=== PATIENT | male | born 1955 | race Caucasian/White ===

== ENCOUNTER 2017-05-30 10:48 | Inpatient (IN) | payer OTHER ==
[2017-05-30] MEDS ORDERED: FAMOTIDINE 20 MG/2 ML VIAL IV STA (11:44)
[2017-05-30] MEDS ORDERED: SODIUM CHLORIDE 0.9% 1,000 ML IV STA (11:44)
[2017-05-30] MEDS ORDERED: RX INFO: IV CONTRAST WAS GIVEN 1 EACH MISC MISCELLANE PRN ×2 (11:45→13:33)
--- NOTE | 2017-05-30 12:20 | ED ---
General Adult HPI - General Chief complaint: Abdominal Pain Stated complaint: Chest Pain Time Seen by Provider: 05/30/17 11:27 Source: patient, RN notes reviewed Mode of arrival: ambulatory Limitations: no limitations - History of Present Illness Initial comments: 61-year-old male presents to the emergency department with a chief complaint of abdominal pain. Patient admits to epigastric palpation as well as a lower abdominal pain. Patient states he just cannot seem to get comfortable at home. Patient denies any changes in bowel or bladder habits he states that he did feel nauseous and did have a few episodes of vomiting with this. Patient states he's never had anything like this before. Patient states that he just cannot get it feeling any better so he thought that he should be seen. Patient states his been no chest pain. Patient states he has had a dry mouth this. Patient denies any recent fever, chills, shortness of breath, chest pain, back pain, numbness or tingling, dysuria or hematuria, constipation or diarrhea, headaches or visual changes, or any other current symptoms. - Related Data Home Medications Medication Instructions Recorded Confirmed Aspirin 325 mg PO DAILY PRN 05/30/17 05/30/17 Atorvastatin [Lipitor] 20 mg PO QAM 05/30/17 05/30/17 Calcium Carbonate [Tums] 500 mg PO QID PRN 05/30/17 05/30/17 Multivit-Min/FA/Lycopen/Lutein 1 tab PO DAILY 05/30/17 05/30/17 [Centrum Silver Men Tablet] Allergies Allergy/AdvReac Type Severity Reaction Status Date / Time No Known Allergies Allergy Verified 05/30/17 11:38 Review of Systems ROS Statement: Those systems with pertinent positive or pertinent negative responses have been documented in the HPI. ROS Other: All systems not noted in ROS Statement are negative. Past Medical History Past Medical History: Hyperlipidemia History of Any Multi-Drug Resistant Organisms: None Reported Past Surgical History: Hernia Repair Additional Past Surgical History / Comment(s): rectocele repair, bilat hernia repair Past Anesthesia/Blood Transfusion Reactions: No Reported Reaction Past Psychological History: No Psychological Hx Reported Smoking Status: Former smoker Past Alcohol Use History: Occasional Past Drug Use History: None Reported General Exam - General Exam Comments Initial Comments: General: The patient is awake and alert, in no distress, and does not appear acutely ill. Eye: Pupils are equal, round and reactive to light, extra-ocular movements are intact; there is normal conjunctiva bilaterally. No signs of icterus. Ears, nose, mouth and throat: There are moist mucous membranes and no oral lesions. Neck: The neck is supple, there is no tenderness. Cardiovascular: There is a regular rate and rhythm. No murmur, rub or gallop is appreciated. Respiratory: Lungs are clear to auscultation, respirations are non-labored, breath sounds are equal. No wheezes, stridor, rales, or rhonchi. Gastrointestinal: Soft, distended with some epigastric abdomen without masses or organomegaly noted. There is no rebound or guarding present. No CVA tenderness. Bowel sounds are unremarkable. Back: There is no tenderness to palpation in the midline. There is no obvious deformity. No rashes noted. Musculoskeletal: Normal ROM, no tenderness, There is no pedal edema. There is no calf tenderness or swelling. Sensation intact. Pulses equal bilaterally 2+. Neurological: CN II-XII intact, There are no obvious motor or sensory deficits. Coordination appears grossly intact. Speech is normal. Skin: Skin is warm and dry and no rashes or lesions are noted. Psychiatric: Cooperative, appropriate mood & affect, normal judgment. Limitations: no limitations Course Vital Signs 05/30/17 10:49 Temperature 98.9 F Pulse Rate 78 Respiratory 18 Rate Blood Pressure 153/81 O2 Sat by Pulse 99 Oximetry EKG Findings - EKG Comments: EKG Findings:: normal sinus rhythm 67 bpm, normal axis, no atopy, no S-T depressions or elevations, Medical Decision Making - Medical Decision Making 61-year-old male presents emergency Department chief complaint of abdominal pain. At this time patient's CAT scan has been reviewed. There is a mass of unknown origin noted. At this time we'll admit the patient for continued care. We will continue pain medication for the patient. He is in agreement with this plan. All questions have been answered. - Lab Data Result diagrams: 05/30/17 12:15 05/30/17 12:15 Lab Results 05/30/17 05/30/17 05/30/17 Range/Units 12:15 12:15 12:15 WBC 10.0 (3.8-10.6) k/uL RBC 4.66 (4.30-5.90) m/uL Hgb 14.1 (13.0-17.5) gm/dL Hct 43.2 (39.0-53.0) % MCV 92.7 (80.0-100.0) fL MCH 30.3 (25.0-35.0) pg MCHC 32.6 (31.0-37.0) g/dL RDW 15.1 (11.5-15.5) % Plt Count 187 (150-450) k/uL Neutrophils % 86 % Lymphocytes % 8 % Monocytes % 5 % Eosinophils % 1 % Basophils % 0 % Neutrophils # 8.6 H (1.3-7.7) k/uL Lymphocytes # 0.8 L (1.0-4.8) k/uL Monocytes # 0.5 (0-1.0) k/uL Eosinophils # 0.1 (0-0.7) k/uL Basophils # 0.0 (0-0.2) k/uL PT (9.0-12.0) sec INR (<1.2) APTT (22.0-30.0) sec Sodium 142 (137-145) mmol/L Potassium 4.6 (3.5-5.1) mmol/L Chloride 108 H (98-107) mmol/L Carbon Dioxide 23 (22-30) mmol/L Anion Gap 11 mmol/L BUN 14 (9-20) mg/dL Creatinine 0.84 (0.66-1.25) mg/dL Est GFR (MDRD) Af Amer >60 (>60 ml/min/1.73 sqM) Est GFR (MDRD) Non-Af >60 (>60 ml/min/1.73 sqM) Glucose 139 H (74-99) mg/dL Calcium 9.6 (8.4-10.2) mg/dL Magnesium 1.8 (1.6-2.3) mg/dL Total Bilirubin 0.6 (0.2-1.3) mg/dL AST 17 (17-59) U/L ALT 28 (21-72) U/L Alkaline Phosphatase 60 (38-126) U/L Total Creatine Kinase 44 L (55-170) U/L CK-MB (CK-2) 0.6 (0.0-2.4) ng/mL CK-MB (CK-2) Rel Index 1.4 Troponin I <0.012 (0.000-0.034) ng/mL Total Protein 6.8 (6.3-8.2) g/dL Albumin 3.9 (3.5-5.0) g/dL Amylase 36 (30-110) U/L Lipase 348 H (23-300) U/L Urine Color Urine Appearance (Clear) Urine pH (5.0-8.0) Ur Specific Gilbert (1.001-1.035) Urine Protein (Negative) Urine Glucose (UA) (Negative) Urine Ketones (Negative) Urine Blood (Negative) Urine Nitrite (Negative) Urine Bilirubin (Negative) Urine Urobilinogen (<2.0) mg/dL Ur Leukocyte Esterase (Negative) Urine RBC (0-5) /hpf Urine WBC (0-5) /hpf Ur Squamous Epith Cells (0-4) /hpf Urine Mucus (None) /hpf 05/30/17 05/30/17 Range/Units 12:15 12:15 WBC (3.8-10.6) k/uL RBC (4.30-5.90) m/uL Hgb (13.0-17.5) gm/dL Hct (39.0-53.0) % MCV (80.0-100.0) fL MCH (25.0-35.0) pg MCHC (31.0-37.0) g/dL RDW (11.5-15.5) % Plt Count (150-450) k/uL Neutrophils % % Lymphocytes % % Monocytes % % Eosinophils % % Basophils % % Neutrophils # (1.3-7.7) k/uL Lymphocytes # (1.0-4.8) k/uL Monocytes # (0-1.0) k/uL Eosinophils # (0-0.7) k/uL Basophils # (0-0.2) k/uL PT 10.9 (9.0-12.0) sec INR 1.1 (<1.2) APTT 26.0 (22.0-30.0) sec Sodium (137-145) mmol/L Potassium (3.5-5.1) mmol/L Chloride (98-107) mmol/L Carbon Dioxide (22-30) mmol/L Anion Gap mmol/L BUN (9-20) mg/dL Creatinine (0.66-1.25) mg/dL Est GFR (MDRD) Af Amer (>60 ml/min/1.73 sqM) Est GFR (MDRD) Non-Af (>60 ml/min/1.73 sqM) Glucose (74-99) mg/dL Calcium (8.4-10.2) mg/dL Magnesium (1.6-2.3) mg/dL Total Bilirubin (0.2-1.3) mg/dL AST (17-59) U/L ALT (21-72) U/L Alkaline Phosphatase (38-126) U/L Total Creatine Kinase (55-170) U/L CK-MB (CK-2) (0.0-2.4) ng/mL CK-MB (CK-2) Rel Index Troponin I (0.000-0.034) ng/mL Total Protein (6.3-8.2) g/dL Albumin (3.5-5.0) g/dL Amylase (30-110) U/L Lipase (23-300) U/L Urine Color Yellow Urine Appearance Cloudy (Clear) Urine pH 5.5 (5.0-8.0) Ur Specific Gilbert 1.028 (1.001-1.035) Urine Protein 3+ H (Negative) Urine Glucose (UA) Trace H (Negative) Urine Ketones Trace H (Negative) Urine Blood Negative (Negative) Urine Nitrite Negative (Negative) Urine Bilirubin Negative (Negative) Urine Urobilinogen <2.0 (<2.0) mg/dL Ur Leukocyte Esterase Negative (Negative) Urine RBC 2 (0-5) /hpf Urine WBC 8 H (0-5) /hpf Ur Squamous Epith Cells 1 (0-4) /hpf Urine Mucus Rare H (None) /hpf Disposition Clinical Impression: Abdominal mass Disposition: ADMITTED IP TO THIS [facility] Condition: Stable Referrals: Bennie Alonso MD [Primary Care Provider] - 1-2 days Time of Disposition: 14:25 Decision Date: 05/30/17 Decision Time: 14:25
[2017-05-30 12:27] LABS: Basophils % (A) 0 %; CHCM 33.6; Eosinophils # (A) 0.1 k/uL (0-0.7); Eosinophils % (A) 1 %; HCT 43.2 % (39.0-53.0); HDW 2.47; HGB 14.1 gm/dL (13.0-17.5); Luc # (Auto) 0.11; Luc % (Auto) 1; Lymphocytes # (A) 0.8 k/uL (1.0-4.8); Lymphocytes % (A) 8 %; MCH 30.3 pg (25.0-35.0); MCHC 32.6 g/dL (31.0-37.0); MCV 92.7 fL (80.0-100.0); Mean Platelet Volume 8.7; Monocytes # (A) 0.5 k/uL (0-1.0); Monocytes % (A) 5 %; Neutrophils # (A) 8.6 k/uL (1.3-7.7); Neutrophils % (A) 86 %; RBC 4.66 m/uL (4.30-5.90); RDW 15.1 % (11.5-15.5); WBC (Perox) 10.17
[2017-05-30 12:40] LABS: Appearance,Urine Cloudy (Clear); Bilirubin,Urine Negative (Negative); Glucose,Urine (UA) Trace (Negative); Ketones,Urine Trace (Negative); Leukocyte Esterase,Urine Negative (Negative); Mucus,Urine Rare /hpf; Nitrite,Urine Negative (Negative); PH, Urine 5.5 (5.0-8.0); Particle Count 5474; Protein,Urine 3+ (Negative); RBC,Urine 2 /hpf (0-5); Specific Gravity,Urine 1.028 (1.001-1.035); Squamous Epithelial Cell,Urine 1 /hpf (0-4); UA Billing (MACRO vs. MICRO) MICRO; Urobilinogen,Urine <2.0 mg/dL (<2.0); WBC,Urine 8 /hpf (0-5)
[2017-05-30 12:41] LABS: ALT 28 U/L (21-72); AST 17 U/L (17-59); Alkaline Phosphatase 60 U/L (38-126); Amylase 36 U/L (30-110); Anion Gap 11 mmol/L; Blood Urea Nitrogen 14 mg/dL (9-20); Calcium 9.6 mg/dL (8.4-10.2); Carbon Dioxide 23 mmol/L (22-30); Chloride 108 mmol/L (98-107); Glucose 139 mg/dL (74-99); Magnesium 1.8 mg/dL (1.6-2.3); Non-African American GFR(MDRD) >60 (>60 ml/min/1.73 sqM); Potassium 4.6 mmol/L (3.5-5.1); Sodium 142 mmol/L (137-145); Total Bilirubin 0.6 mg/dL (0.2-1.3); Total Protein 6.8 g/dL (6.3-8.2)
[2017-05-30 12:46] LABS: INR 1.1 (<1.2); Prothrombin Time 10.9 sec (9.0-12.0)
[2017-05-30 12:53] LABS: Creatine Kinase 44 U/L (55-170)
[2017-05-30 13:06] LABS: Creatine Kinase MB 0.6 ng/mL (0.0-2.4); Troponin I <0.012 ng/mL (0.000-0.034)
--- NOTE | 2017-05-30 13:17 | XR ---
EXAMINATION TYPE: XR chest 2V DATE OF EXAM: 05/30/2017 COMPARISON: NONE TECHNIQUE: PA and lateral views submitted. HISTORY: Chest pain FINDINGS: The lungs are clear and there is no pneumothorax, pleural effusion, or focal pneumonia. Arthropathy of the shoulders with diffuse osteopenia. Hypertrophic change of the spine. IMPRESSION: 1. No acute process.
--- NOTE | 2017-05-30 14:06 | CT ---
EXAMINATION TYPE: CT ChestAbdPelvis w con DATE OF EXAM: 05/30/2017 COMPARISON: NONE HISTORY: abdominal pain CT DLP: 1709.3 mGycm. Automated Exposure Control for Dose Reduction was Utilized. CONTRAST: CT scan of the thorax, abdomen and pelvis is performed with IV Contrast, patient injected with 100 mL of Omnipaque 300. FINDINGS: LUNGS: The lungs are grossly clear, there is no concerning parenchymal mass or nodule identified. T here is no pleural effusion or pneumothorax seen. The tracheobronchial tree is patent. MEDIASTINUM: There are no greater than 1 cm hilar or mediastinal lymph nodes. No pericardial effusi on is seen. OTHER: No additional significant abnormality is seen. LIVER/GB: Scattered hypoattenuated hepatic lesions that are seen that are all subcentimeter and too s mall to accurately characterize. Gallbladder appears unremarkable. PANCREAS: No significant abnormality is seen. SPLEEN: No significant abnormality is seen. ADRENALS: No significant abnormality is seen. KIDNEYS: Nonobstructing renal calculi are seen within the right kidney measuring 2.0 cm on the right in the inferior pole and 5 mm in the superior pole. BOWEL: No bowel obstruction. Atrophic changes of the transverse colon are described below. OSSEOUS STRUCTURES: No significant abnormality is seen. OTHER: Large heterogenous Central mesenteric mass is seen with the epicenter at the level of the adre nal glands. This has mass effect upon the pancreas and adrenal glands as well as the portal venous co nfluence and SMV displacing them to the right. This measures at least 15.7 x 12.1 x 13.1 cm in anteri or posterior by craniocaudal by transverse dimension. There is also mass effect upon the left renal v ein and bowel. This appears to emanate from the mesentery and there is surrounding inflammatory aguilera e inferiorly. This also displaces the transverse colon and there is severe mucosal atrophy and fatty replacement of the abutting transverse colon. Central cystic spaces are seen. 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 Adjacent mesenteric fat stranding inferiorly and atrophic changes of the abutting transverse colon ar e noted. Primary considerations are peritoneal metastasis, lymphoma, mesothelioma, malignant fibrocys tic histiocytoma or dedifferentiated liposarcoma. Tissue sampling could be performed.
[2017-05-30] MEDS ORDERED: NALOXONE 0.4 MG/ML 1 ML VIAL IV PRN (14:25)
[2017-05-30] MEDS ORDERED: CALCIUM CARBONATE 500 MG CHEWABLE PO PRN (14:26)
[2017-05-30] MEDS ORDERED: ASPIRIN 325 MG TAB PO PRN (14:26)
[2017-05-30] MEDS: HYDROmorphone 1 MG/ML 1 ML SYRINGE IV PRN ×3 (14:49→22:37)
[2017-05-30] MEDS: SODIUM CHLORIDE 0.9% 1,000 ML IV SCH (16:10)
[2017-05-30 22:37] VITALS: PULSE 74
[2017-05-31] MEDS: SODIUM CHLORIDE 0.9% 1,000 ML IV SCH ×2 (00:26→07:17)
[2017-05-31] MEDS: HYDROmorphone 1 MG/ML 1 ML SYRINGE IV PRN ×4 (02:35→12:02)
[2017-05-31 07:46] LABS: Basophils % (A) 0 %; CH 29.5; CHCM 33.1; Eosinophils % (A) 0 %; HCT 37.1 % (39.0-53.0); HDW 2.53; HGB 12.6 gm/dL (13.0-17.5); Luc # (Auto) 0.13; Luc % (Auto) 2; Lymphocytes # (A) 0.6 k/uL (1.0-4.8); Lymphocytes % (A) 8 %; MCH 30.5 pg (25.0-35.0); MCV 89.6 fL (80.0-100.0); Monocytes # (A) 0.6 k/uL (0-1.0); Monocytes % (A) 8 %; Neutrophils # (A) 6.8 k/uL (1.3-7.7); Neutrophils % (A) 83 %; RBC 4.14 m/uL (4.30-5.90); RDW 14.2 % (11.5-15.5); WBC 8.2 k/uL (3.8-10.6); WBC (Perox) 8.55
[2017-05-31 07:57] VITALS: BP 130/74; RESP 16; TEMP 97.9
[2017-05-31 08:09] LABS: ALT 16 U/L (21-72); AST 14 U/L (17-59); Alkaline Phosphatase 64 U/L (38-126); Anion Gap 7 mmol/L; Blood Urea Nitrogen 11 mg/dL (9-20); Calcium 8.8 mg/dL (8.4-10.2); Carbon Dioxide 26 mmol/L (22-30); Chloride 106 mmol/L (98-107); Glucose 116 mg/dL (74-99); Non-African American GFR(MDRD) >60 (>60 ml/min/1.73 sqM); Potassium 4.5 mmol/L (3.5-5.1); Sodium 139 mmol/L (137-145); Total Protein 5.9 g/dL (6.3-8.2)
[2017-05-31] MEDS ORDERED: ATORVASTATIN 20 MG TAB PO SCH (09:00)
[2017-05-31] MEDS ORDERED: ENOXAPARIN 40 MG/0.4 ML SYRINGE SQ SCH (09:00)
[2017-05-31] MEDS ORDERED: MULTIVITAMINS, THERA 1 EACH TAB PO SCH (12:00)
--- NOTE | 2017-05-31 13:12 | HP ---
DATE OF ADMISSION: 05/30/17 PRESENTING COMPLAINT: Abdominal pain. HISTORY OF PRESENTING COMPLAINT: This is a very pleasant 61-year-old patient who is in good health, of Dr. Alonso. Chronic stable medical conditions include kidney stones, gallstones, who this morning went to work and suddenly started not feeling well and progressively getting increasing abdominal pain and decided to leave work. The patient, the last few days had been not feeling well and just did not feel like eating. No obvious weight loss. No fevers. Bowel pattern had been reasonable otherwise. REVIEW OF SYSTEMS: Constitutional: Tired. HEENT: None. Respiratory: None. Cardiovascular: None. Gastrointestinal: As above. : None. Musculoskeletal: None. Dermatological: None. Hematological: None. Lymphatics : None. PSYCHIATRY: None. Neurological: None. Past medical history of hyperlipidemia, kidney stones, gallstones, tear in the right shoulder due to work injury, fishing hook removed from the finger. Past surgical history: Rectocele repair, bilateral hernia repair. SOCIAL HISTORY: The patient . Works as a ( ). Occasional cigars. Alcohol none. No recreational drugs. FAMILY HISTORY: Dementia, pneumonia, hernias. Home medications: 1. Centrum silver one tablet po daily. 2. Tums 500 mg po q.i.d. prn. 3. Aspirin 325 po daily prn. 4. Lipitor 20 mg po daily. ALLERGIES: none. On examination, vital signs on presentation: Temperature 97.3. Pulse 74. Respiratory rate 18. Blood pressure 120/70. Pulse ox 96% on room air. GENERAL APPEARANCE: Average built. Lying in bed, not in distress. EYES: pupils equal. Conjunctivae normal. HEENT: Oral cavity normal. NECK: JVD not raised. Mass not palpable. RESPIRATORY: Effort normal. LUNGS: Clear. CARDIOVASCULAR: First and second sounds normal. No edema. ABDOMEN: Slightly distended. Diffuse central tenderness. Some underlying masses palpable. No guarding or rigidity. Liver and spleen not palpable. LYMPHATICS: No lymph nodes palpable in the neck and axillae. PSYCHIATRIC: The patient is alert and oriented times three. Mood and affect normal. NEUROLOGICAL: Pupils equal and cranial nerves grossly intact. Power and sensation grossly intact. INVESTIGATIONS: White count 10, Potassium 4.6. Amylase 36, lipase 348. CT scan of the abdomen and pelvis shows a large heterogenous central mesenteric mass displacing several visceral and vascular structures. ASSESSMENT: 1. Large heterogenous central mesenteric mass displacing several visceral and vascular structures. At this point, cause is unknown. Differential is rather large. 2. Gallstones asymptomatic. 3. Kidney stones. 4. Hyperlipidemia. PLAN: The patient made NPO. Given IV fluids. General surgery has been consulted. Given the size of the tumor, the patient may need an exploratory laparotomy. Plan was discussed with the patient. Await input from surgery and take it from there. Copy to Dr. Alonso. [facility]
--- NOTE | 2017-05-31 13:22 | P.GSCN ---
History of Present Illness Consult date: 05/31/17 Reason for Consult: Abdominal pain History of present illness: 61-year-old male being seen by surgical service at the request of the attending for eval of a chief complaint of abdominal pain epigastric radiating to the bilateral lower abdominal wall onset past several days. Patient has a history of experiencing similar pain onset 1 month ago he thought at first he may have pulled a abdominal muscle he noted that he would have discomfort trying to put his shoes on. He stated that the day that he came into the hospital he never had any pain like this before he could not get comfortable. Patient stated that he felt nauseated and did vomit. He also noted over the last week when he eats he felt a fullness with abdominal bloating. Patient states there was no blood noted in the stool. Patient denied any change in bowel or bladder habits. Patient denies any shortness of breath dizziness lightheadedness or hematuria. Patient has no significant past medical history except for hyperlipidemia in which he is on Lipitor. Patient states he takes over-the- counter multivitamin and there have been no new medication added. Patient additionally has no significant past surgical history. Patient stated that his last colonoscopy was in June 2014 which time he was told he had internal/ external hemorrhoids and diverticulosis. He was told he did not need to have another colonoscopy for at least 7-10 years. Patient was seen in the emergency room and did undergo CT of the chest and abdomen with contrast in summary it showed a large heterogenous central mesenteric mass displacing visceral and vascular structures adjacent mesenteric fat stranding inferiorly and atrophic changes of the abutting transverse colon were noted. Patient was seen by Dr. Weber surgical service for the abnormal CAT scan of the patient's above mentioned symptoms. Dr. Weber did review the CAT scan report and images were reviewed as well there was concerned discussion with the patient in regards to options were to transfer patient to a tertiary center for higher level of care for concerns the CAT scan findings could be suggestive of peritoneal metastatic disease Review of Systems Essentially unremarkable except as mentioned in the present illness Past Medical History Past Medical History: Hyperlipidemia Additional Past Medical History / Comment(s): kidney stones, "gallstones", tear in rt shoulder d/t work injury, "abd hernia", fish hook removed from finger in past. History of Any Multi-Drug Resistant Organisms: None Reported Past Surgical History: Hernia Repair Additional Past Surgical History / Comment(s): rectocele repair, bilat hernia repair, colonoscopy Past Anesthesia/Blood Transfusion Reactions: No Reported Reaction Smoking Status: Current some day smoker - Past Family History Father Family Medical History: Dementia, Pneumonia Additional Family Medical History / Comment(s): hernia's Mother Family Medical History: Dementia Additional Family Medical History / Comment(s): mom is alive at age 89 has beginning of dementia Medications and Allergies Home Medications Medication Instructions Recorded Confirmed Type Aspirin 325 mg PO DAILY PRN 05/30/17 05/30/17 History Atorvastatin [Lipitor] 20 mg PO QAM 05/30/17 05/30/17 History Calcium Carbonate [Tums] 500 mg PO QID PRN 05/30/17 05/30/17 History Multivit-Min/FA/Lycopen/Lutein 1 tab PO DAILY 05/30/17 05/30/17 History [Centrum Silver Men Tablet] Allergies Allergy/AdvReac Type Severity Reaction Status Date / Time No Known Allergies Allergy Verified 05/30/17 11:38 Surgical - Exam Vital Signs Temp Pulse Resp BP Pulse Ox 98.9 F 78 18 153/81 99 05/30/17 10:49 05/30/17 10:49 05/30/17 10:49 05/30/17 10:49 05/30/17 10:49 GENERAL APPEARANCE: 61-year-old male patient is alert, oriented, reports having an episode of feeling nauseated this morning did vomit VITAL SIGNS: Reviewed HEENT: Head is normocephalic and atraumatic. Pupils are equal and reactive. The nares are patent. Oropharynx is clear without lesions. NECK: Supple without lymphadenopathy. Traches midline. HEART: S1, S2. Regular rate and rhythm. Denying chest pain no murmur noted LUNGS: No crackles or wheezes are heard. Adequate air movement bilaterally ABDOMEN: Soft diffuse tenderness across the abdominal wall nondistended with good bowel sounds. No peritoneal signs. No palpable organomegaly or masses. EXTREMITIES: Normal skin color and turgor. No cyanosis, rash, ulceration, clubbing or edema. Radial pedal pulses are 2/4 bilaterally. NEUROLOGICAL: No focal deficits. Strength and sensation are grossly intact. Results - Labs 05/31/17 07:05 05/31/17 07:05 Abnormal Lab Results - Last 24 Hours (Table) 05/30/17 05/31/17 05/31/17 Range/Units 12:15 07:05 07:05 RBC 4.14 L (4.30-5.90) m/uL Hgb 12.6 L (13.0-17.5) gm/dL Hct 37.1 L (39.0-53.0) % Plt Count 146 L (150-450) k/uL Lymphocytes # 0.6 L (1.0-4.8) k/uL Glucose 116 H (74-99) mg/dL AST 14 L (17-59) U/L ALT 16 L (21-72) U/L Total Creatine Kinase 44 L (55-170) U/L Total Protein 5.9 L (6.3-8.2) g/dL Albumin 3.4 L (3.5-5.0) g/dL Diabetes panel 05/31/17 Range/Units 07:05 Sodium 139 (137-145) mmol/L Potassium 4.5 (3.5-5.1) mmol/L Chloride 106 (98-107) mmol/L Carbon Dioxide 26 (22-30) mmol/L BUN 11 (9-20) mg/dL Creatinine 0.75 (0.66-1.25) mg/dL Glucose 116 H (74-99) mg/dL Calcium 8.8 (8.4-10.2) mg/dL AST 14 L (17-59) U/L ALT 16 L (21-72) U/L Alkaline Phosphatase 64 (38-126) U/L Total Protein 5.9 L (6.3-8.2) g/dL Albumin 3.4 L (3.5-5.0) g/dL Calcium panel 05/31/17 Range/Units 07:05 Calcium 8.8 (8.4-10.2) mg/dL Albumin 3.4 L (3.5-5.0) g/dL Pituitary panel 05/31/17 Range/Units 07:05 Sodium 139 (137-145) mmol/L Potassium 4.5 (3.5-5.1) mmol/L Chloride 106 (98-107) mmol/L Carbon Dioxide 26 (22-30) mmol/L BUN 11 (9-20) mg/dL Creatinine 0.75 (0.66-1.25) mg/dL Glucose 116 H (74-99) mg/dL Calcium 8.8 (8.4-10.2) mg/dL Adrenal panel 05/31/17 Range/Units 07:05 Sodium 139 (137-145) mmol/L Potassium 4.5 (3.5-5.1) mmol/L Chloride 106 (98-107) mmol/L Carbon Dioxide 26 (22-30) mmol/L BUN 11 (9-20) mg/dL Creatinine 0.75 (0.66-1.25) mg/dL Glucose 116 H (74-99) mg/dL Calcium 8.8 (8.4-10.2) mg/dL Total Bilirubin 1.0 (0.2-1.3) mg/dL AST 14 L (17-59) U/L ALT 16 L (21-72) U/L Alkaline Phosphatase 64 (38-126) U/L Total Protein 5.9 L (6.3-8.2) g/dL Albumin 3.4 L (3.5-5.0) g/dL Assessment and Plan Plan: Impression Present on admission abdominal pain nausea vomiting suspect due to a large heterogenous central mesenteric mass as seen on a CAT scan abdomen and pelvis Hyperlipidemia History of a hernia repair Colonoscopy 2014 no acute findings Plan Recommend the patient be transferred to a tertiary center for a higher level of care to address the abnormal findings on the CAT scan and pelvis suggesting a large heterogenous central mesenteric mass Discussed plan with primary care provider who does agree with a transfer to [facility] in [place] Plan was discussed with the patient is well patient agrees to be transferred The above impression and plan of care have been discussed and directed by signing physician. Elizabeth Smiley nurse practitioner acting as scribe for signing physician.
--- NOTE | 2017-05-31 18:47 | P.CONS ---
History of Present Illness - Reason for Consult Consult date: 05/31/17 abd mass Requesting physician: Maddie Durand - Chief Complaint abd pain - History of Present Illness Mr. Garcia is a very pleasant male who noted some changes in his health starting about 2 weeks ago. He states it started with change in BM, smaller calibur and shorter length of stool, he denied rectal pain, black or bloody stool. He also noticed that when he laid down it felt like something was "bubbling up to the surface" of his abd and then he could feel a hard lump in the epigastric area. He denied any fevers, night sweats, has had early satiety and mild malaise last few weeks, no increase indigestion but did have a few dry heaves, no SOB, chest pain, palpitations, changes in urination, no numbness or tingling in the legs, no loss of strength or coordination. No personal history of cancer. Review of Systems ROS is as stated in HPI Past Medical History Past Medical History: Hyperlipidemia Additional Past Medical History / Comment(s): kidney stones, "gallstones", tear in rt shoulder d/t work injury, "abd hernia", fish hook removed from finger in past. History of Any Multi-Drug Resistant Organisms: None Reported Past Surgical History: Hernia Repair Additional Past Surgical History / Comment(s): rectocele repair, bilat hernia repair, colonoscopy Past Anesthesia/Blood Transfusion Reactions: No Reported Reaction Smoking Status: Current some day smoker - Past Family History Father Family Medical History: Dementia, Pneumonia Additional Family Medical History / Comment(s): hernia's Mother Family Medical History: Dementia Additional Family Medical History / Comment(s): mom is alive at age 89 has beginning of dementia Medications and Allergies Home Medications Medication Instructions Recorded Confirmed Type Aspirin 325 mg PO DAILY PRN 05/30/17 05/30/17 History Atorvastatin [Lipitor] 20 mg PO QAM 05/30/17 05/30/17 History Calcium Carbonate [Tums] 500 mg PO QID PRN 05/30/17 05/30/17 History Multivit-Min/FA/Lycopen/Lutein 1 tab PO DAILY 05/30/17 05/30/17 History [Centrum Silver Men Tablet] Allergies Allergy/AdvReac Type Severity Reaction Status Date / Time No Known Allergies Allergy Verified 05/30/17 11:38 Physical Exam Vitals: Vital Signs Temp Pulse Resp BP Pulse Ox 05/31/17 07:00 97.9 F 74 16 130/74 98 05/31/17 00:00 74 18 05/30/17 22:36 97.3 F L 74 129/70 96 Intake and Output 05/31/17 05/31/17 05/31/17 06:59 14:59 22:59 Intake Total 600 Balance 600 Intake: Intake, IV Titration 600 Amount Sodium Chloride 0.9% 1, 600 000 ml @ 100 mls/hr IV . Q10H [facility] Rx#:[id number] Other: Voiding Method Toilet Toilet Urinal Urinal # Voids 2 # Bowel Movements 0 Weight 92.986 kg - Constitutional General appearance: cooperative, no acute distress, obese - EENT Eyes: anicteric sclerae, EOMI, PERRLA, normal appearance ENT: hearing grossly normal, normal oropharynx - Neck Neck: no lymphadenopathy - Respiratory Respiratory: bilateral: CTA - Cardiovascular Rhythm: regular Heart sounds: normal: S1, S2 Abnormal Heart Sounds: no systolic murmur, no diastolic murmur, no rub, no S3 Gallop, no S4 Gallop, no click, no other leg Peripheral Edema: bilateral: None - Gastrointestinal General gastrointestinal: no absent bowel sounds, no decreased bowel sounds, no distended, no hepatomegaly, no hyperactive bowel sounds, normal bowel sounds, no organomegaly, no rigid, no scaphoid, soft, no splenomegaly, tenderness, no umbilical hernia, ventral hernia (superior to umbilicus) Localized gastrointestinal: tender: epigastric periumbilical (deep palpation, no mass ) - Integumentary Integumentary: normal - Neurologic Neurologic: CNII-XII intact - Musculoskeletal Musculoskeletal: strength equal bilaterally - Psychiatric Psychiatric: A&O x's 3, appropriate affect, intact judgment & insight Results CBC & Chem 7: 05/31/17 07:05 05/31/17 07:05 Labs: Abnormal Lab Results - Last 24 Hours (Table) 05/31/17 05/31/17 Range/Units 07:05 07:05 RBC 4.14 L (4.30-5.90) m/uL Hgb 12.6 L (13.0-17.5) gm/dL Hct 37.1 L (39.0-53.0) % Plt Count 146 L (150-450) k/uL Lymphocytes # 0.6 L (1.0-4.8) k/uL Glucose 116 H (74-99) mg/dL AST 14 L (17-59) U/L ALT 16 L (21-72) U/L Total Protein 5.9 L (6.3-8.2) g/dL Albumin 3.4 L (3.5-5.0) g/dL CT scan - abdomen: report reviewed CT scan - chest: report reviewed CT scan - pelvis: report reviewed Assessment and Plan (1) Abdominal mass Narrative/Plan: Concern is for malignant process and this was mentioned to pt but it was explained that a biopsy is needed for definitive diagnosis and to be able to discuss treatment options, he verbalized understanding. No other suspicious masses were found on imaging so target would be mesenteric mass. Case was discussed with IR and [facility]. Best option for pt was decided to be transfer to [facility] for biopsy. Agree with plan of care, pt is stable so transfer is reasonable. Status: Acute
--- NOTE | 2017-06-01 23:00 | DS ---
DISCHARGE SUMMARY FINAL DIAGNOSES: 1. Large heterogeneous abdominal mass displacing several visceral and vascular structures. The differential is large. 2. Gallstones, asymptomatic. 3. Kidney stones. Asymptomatic. 4. Hyperlipidemia. HOSPITAL COURSE: This patient whose was in good health presented with 1 day of increasing abdominal pain, tenderness and CT scan showed a large mass. It is unclear exactly what this was. Patient was afebrile with normal white count. CT scan of the abdomen showed the mass to be 15.7 x 12.1 x 13.1 cm. I spoke to. The patient was seen by being seen by Dr. Weber who recommended the patient to be transferred to a higher tertiary center to address this large heterogeneous mass. I spoke to Dr. Zheng from from [facility] surgical transfer team who accepted the patient. I spoke to the patient's son at the bedside. They are agreeable for transfer. On examine, abdomen tender with a large mass. Psych AO x3. DISPOSITION: [facility]. Under accepting physician. Dr. Zheng from general surgery. Discharge planning more than 35 minutes. MMODL / IJN: [id number] /
== END 2017-05-31 14:15 | disposition short-term general hospital (02) | DRG 392 ==
LOC: EC 10:48 → 5ONC 14:38
PROVIDERS: ADMIT Hospitalist; ATTEND Hospitalist
DX: R19.00 Intra-abdominal and pelvic swelling, mass and lump, unspecified site (principal); N20.0 Calculus of kidney; E78.5 Hyperlipidemia, unspecified; F17.290 Nicotine dependence, other tobacco product, uncomplicated; K80.20 Calculus of gallbladder without cholecystitis without obstruction; K57.90 Diverticulosis of intestine, part unspecified, without perforation or abscess without bleeding; K64.4 Residual hemorrhoidal skin tags; K64.8 Other hemorrhoids; Z79.82 Long term (current) use of aspirin; Z79.899 Other long term (current) drug therapy
CPT/HCPCS: 36415; 71020; 71260; 74177; 80053; 81001; 82150; 82550; 82553; 83690; 83735; 84484; 85025; 85610; 85730; 93005; 96361; 96374; 96375; 99285

== ENCOUNTER 2017-11-06 14:49 | Emergency (ER) | payer OTHER ==
[~2017-11-06 14:49] MED LIST: EPINEPHrine 10 ML SYRINGE (0.1 MG/ML) ONE; SODIUM BICARB 8.4% 50 ML SYR (1 MEQ/ML) ONE
[2017-11-06 15:05] LABS: Glucose,Whole Blood 123 mg/dL (75-99)
--- NOTE | 2017-11-06 15:10 | ED ---
CPR HPI - General Stated Complaint: CPR Time Seen by Provider: 11/06/17 14:49 Source: EMS, RN notes reviewed, old records reviewed Mode of arrival: EMS - History of Present Illness Initial Comments: This is a 62-year-old male with a reported recent diagnosis of pancreatic cancer who was found unresponsive outside a neighbor who come by to visit the. Is unknown how long the patient was down he appeared to be shoveling snow per reports the 911 system was activated. Approximately 1425 fire rescue responded 1428 and CPR was started. EMS/paramedics arrived and started ACLS protocol including a Ron airway and CPR. Patient was pulseless at neck and cyanotic upon initial arrival. CPR was continued and route to. The patient arrived at the emergency department at 14:49. The patient does have a history of hypertension per family. No history of heart disease. Patient is a nonsmoker and only occasionally uses alcohol. MD Complaint: found unresponsive - Related Data Home Medications Medication Instructions Recorded Confirmed Aspirin 325 mg PO DAILY PRN 05/30/17 05/30/17 Atorvastatin [Lipitor] 20 mg PO QAM 05/30/17 05/30/17 Calcium Carbonate [Tums] 500 mg PO QID PRN 05/30/17 05/30/17 Multivit-Min/FA/Lycopen/Lutein 1 tab PO DAILY 05/30/17 05/30/17 [Centrum Silver Men Tablet] Allergies Allergy/AdvReac Type Severity Reaction Status Date / Time No Known Allergies Allergy Verified 05/30/17 11:38 Review of Systems ROS Statement: Those systems with pertinent positive or pertinent negative responses have been documented in the HPI. ROS Other: All systems not noted in ROS Statement are negative. Limitations: ROS unobtainable due to patients medical condition Past Medical History Past Medical History: Hyperlipidemia Additional Past Medical History / Comment(s): kidney stones, "gallstones", tear in rt shoulder d/t work injury, "abd hernia", fish hook removed from finger in past. History of Any Multi-Drug Resistant Organisms: None Reported Past Surgical History: Hernia Repair Additional Past Surgical History / Comment(s): rectocele repair, bilat hernia repair, colonoscopy Past Anesthesia/Blood Transfusion Reactions: No Reported Reaction Smoking Status: Current some day smoker - Past Family History Father Family Medical History: Dementia, Pneumonia Additional Family Medical History / Comment(s): hernia's Mother Family Medical History: Dementia Additional Family Medical History / Comment(s): mom is alive at age 89 has beginning of dementia General Exam - General Exam Comments Initial Comments: This is a well-developed well-nourished unresponsive male who arrives with CPR in progress. Limitations: altered mental status General appearance: other (Unresponsive) Head exam: Present: atraumatic, normocephalic, normal inspection Eye exam: Present: other (Pupils are fixed and dilated bilaterally ) ENT exam: Present: other (Ron airway in place) Neck exam: Present: normal inspection. Absent: tenderness, meningismus, lymphadenopathy Respiratory exam: Present: decreased breath sounds (Decreased but equal breath sounds.) Cardiovascular Exam: Present: other (Asystolic) GI/Abdominal exam: Present: soft, distended Rectal exam: Present: normal inspection exam: Present: normal inspection Extremities exam: Present: other (Pulses only with CPR/chest compressions no pulses without chest compressions). Absent: tenderness, normal capillary refill , pedal edema, joint swelling, calf tenderness Back exam: Present: normal inspection Neurological exam: Present: other (Unresponsive) Psychiatric exam: Present: other (Unresponsive) Skin exam: Present: pallor Course - Reevaluation(s) Reevaluation #1: 11/06/17 15:10 CPR was continued until it seemed to be futile and the patient was pronounced at 14:58 PM. Reevaluation #2: 11/06/17 15:44 I did discuss the case and findings with the patient's former mother and father- in-law. The father-inlaw found the patient unresponsive and started CPR on him as well as notify 911.. I also did discuss the findings with the patient's sons who came in shortly thereafter. Dr. Avery is the patient's family physician. Reevaluation #3: 11/06/17 15:[address] Avery's office he is unavailable for 1 week. Reevaluation #4: 11/06/17 15:45 I contacted the medical center representative's office and did discuss the case and findings with the medical center representative's disposition is pending at this time. Medical Decision Making - Medical Decision Making The patient had approximately 30+ minutes of CPR/ACLS protocol to no avail. Patient did not respond to efforts and was pronounced at 1458 PM. The presentation is consistent with a sudden cardiac event. - Lab Data Lab Results 11/06/17 Range/Units 14:53 POC Glucose (mg/dL) 123 H (75-99) mg/dL POC Glu [employer] ID Sylvia Mcnamara Critical Care Time Critical Care Time: Yes Critical Care Time: 35 minutes of critical care time which includes monitoring the EMS run and discussed with paramedics. History and physical on the patient CPR/ACLS efforts. Discussion with the patient's family is. Discussion with the patient' s physician office. Discussed with the medical center representative. Documentation of the above. Disposition Clinical Impression: Sudden cardiac , Pancreatic cancer Disposition: Referrals: None,Stated [Primary Care Provider] - 1-2 days Preliminary Cause of : Sudden cardiac , pancreatic cancer
== END 2017-11-06 17:53 | disposition expired ==
LOC: EC 14:49
DX: I46.9 Cardiac arrest, cause unspecified (principal); E78.5 Hyperlipidemia, unspecified; F17.200 Nicotine dependence, unspecified, uncomplicated; Z85.07 Personal history of malignant neoplasm of pancreas; Z79.899 Other long term (current) drug therapy
CPT/HCPCS: 99291; 92950; 36415; J0171